=== PATIENT | male | born 1985 | race Caucasian/White ===

== ENCOUNTER 2020-11-06 19:30 | Emergency (ER) | payer MEDICAID ==
[~2020-11-06] VITALS: Ht 175.3 cm; Wt 81.6 kg
[2020-11-06 19:41] VITALS: BP 114/69
--- NOTE | 2020-11-06 19:44 | NUR ---
to lobby a/w bed ambulatory
--- NOTE | 2020-11-06 19:56 | NUR ---
PT RETURN FROM [facility] TO [facility]
[2020-11-06] MEDS ORDERED: IBUP-2218 PO (22:35)
--- NOTE | 2020-11-06 23:30 | NUR ---
Patient discharged with v/s stable. Written and verbal after care instructions given and explained BY DR. COYNE. Patient alert, oriented and verbalized understanding of instructions. Ambulatory with steady gait. All questions addressed prior to discharge. ID band removed. Patient advised to follow up with PMD. Rx of MOTRIN given. Patient educated on indication of medication including possible reaction and side effects. Opportunity to ask questions provided and answered.
== END 2020-11-06 23:30 | disposition home or self-care (01) ==
LOC: MED 19:30
DX: S99.922A Unspecified injury of left foot, initial encounter (principal); W19.XXXA Unspecified fall, initial encounter; Y93.89 Activity, other specified; Y92.89 Other specified places as the place of occurrence of the external cause; Y99.8 Other external cause status
CPT/HCPCS: 73630; 99283

== ENCOUNTER 2020-12-16 20:17 | Emergency (ER) | payer MEDICAID ==
[~2020-12-16] VITALS: Ht 172.7 cm; Wt 81.6 kg
[~2020-12-16 20:17] MED LIST: IBUP-2218 PO
[2020-12-16 20:45] VITALS: BP 109/62
--- NOTE | 2020-12-16 22:00 | NUR ---
PT CALLED FROM IN LOBBY WELL OUTSIDE, NO RESPONSE FROM PT
--- NOTE | 2020-12-16 22:05 | NUR ---
PT CALLED FROM INSIDE LOBBY, WELL OUTSIDE IN PARKING LOT. NO RESPONSE FROM PT.
[2020-12-16] MEDS ORDERED: IBUPROFEN 400 MG TAB PO ONE (22:15)
[2020-12-16] MEDS ORDERED: ACETAMINOPHEN EXTRA STRENGTH 500 MG TAB PO ONE (22:15)
[2020-12-16 23:52] VITALS: BP 109/62
--- NOTE | 2020-12-16 23:52 | NUR ---
Patient discharged with v/s stable. Written and verbal after care instructions given and explained. Patient verbalized understanding. Ambulatory with steady gait. All questions addressed prior to discharge. Advised to follow up with PMD.
== END 2020-12-17 03:07 | disposition home or self-care (01) ==
LOC: MED 20:17
DX: R51.9 Headache, unspecified (principal); Z20.822 Contact with and (suspected) exposure to COVID-19; R50.9 Fever, unspecified; R11.0 Nausea
CPT/HCPCS: 99283; U0003

== ENCOUNTER 2021-03-11 19:27 | Emergency (ER) | payer MEDICAID ==
[~2021-03-11] VITALS: Ht 172.7 cm; Wt 81.6 kg
[2021-03-11 19:34] VITALS: BP 137/76
[2021-03-11] MEDS ORDERED: ONDA4TAB PO (21:05)
[2021-03-11] MEDS ORDERED: IBUP-1842 PO (21:06)
[2021-03-11] MEDS ORDERED: ACET-10509 PO (21:06)
--- NOTE | 2021-03-11 21:30 | NUR ---
NOVEL SWAB AND INFLUENZE A & B SWAB COLLECTED. DELIVERED TO LAB. PT TOLERATED WELL.
--- NOTE | 2021-03-11 21:40 | NUR ---
Patient discharged with v/s stable. Written and verbal after care instructions given and explained. Patient alert, oriented and verbalized understanding of instructions. Ambulatory with steady gait. All questions addressed prior to discharge. ID band removed. Patient advised to follow up with PMD. Rx of IBUPROFEN, ACETAMINOPHEN, ZOFRAN given. Patient educated on indication of medication including possible reaction and side effects. Opportunity to ask questions provided and answered.
[2021-03-11 21:51] VITALS: BP 137/76
== END 2021-03-11 21:40 | disposition home or self-care (01) ==
LOC: MED 19:27
DX: R11.2 Nausea with vomiting, unspecified (principal); Z20.822 Contact with and (suspected) exposure to COVID-19; Z79.899 Other long term (current) drug therapy; Z79.1 Long term (current) use of non-steroidal anti-inflammatories (NSAID)
CPT/HCPCS: 87804; 99283; U0003

== ENCOUNTER 2021-05-02 06:00 | Emergency (ER) | payer BC, MEDICAID ==
[~2021-05-02] VITALS: Ht 180.3 cm; Wt 86.2 kg
[~2021-05-02 06:00] MED LIST changes: +ACET-10509 PO; +IBUP-1842 PO; +ONDA4TAB PO
[2021-05-02 06:05] VITALS: BP 101/71
[2021-05-02] MEDS ORDERED: MOT200 PO (06:40)
[2021-05-02] MEDS ORDERED: Tessalon Perles PO (06:44)
[2021-05-02 06:50] VITALS: BP 101/71
== END 2021-05-02 06:50 | disposition home or self-care (01) ==
LOC: MED 06:00
DX: B34.9 Viral infection, unspecified (principal)
CPT/HCPCS: 99282

== ENCOUNTER 2023-11-24 11:32 | Emergency (ER) | payer BC, MEDICAID ==
[~2023-11-24] VITALS: Ht 172.7 cm; Wt 85.0 kg
[~2023-11-24 11:32] MED LIST changes: +MOT200 PO; +Tessalon Perles PO
[2023-11-24 11:51] VITALS: BP 120/84; PULSE 75; RESP 18; TEMP 97.5; O2SAT 95
[2023-11-24] MEDS ORDERED: OFLO5SOL27 OT (12:37)
== END 2023-11-24 12:44 | disposition home or self-care (01) ==
LOC: MED 11:32
DX: H60.93 Unspecified otitis externa, bilateral (principal); Z79.1 Long term (current) use of non-steroidal anti-inflammatories (NSAID); Z79.899 Other long term (current) drug therapy
CPT/HCPCS: 99283

== ENCOUNTER 2024-02-24 17:23 | Emergency (ER) | payer BC, MEDICAID ==
[~2024-02-24] VITALS: Ht 170.2 cm; Wt 81.6 kg
[~2024-02-24 17:23] MED LIST changes: -ACET-10509 PO; +ACET500T99 PO; +OFLO5SOL27 OT
[2024-02-24 17:34] VITALS: PULSE 91; RESP 18; TEMP 98.8; O2SAT 96
[2024-02-24] MEDS: KETOROLAC 30 MG/ML VIAL IM ONE (20:37)
[2024-02-24] MEDS: LIDOCAINE/PRILOCAINE 2.5% 5 GM TUBE TP ONE (20:37)
[2024-02-24 21:00] VITALS: O2SAT 96
[2024-02-24] MEDS ORDERED: IBUP-2213 PO (21:57)
[2024-02-24] MEDS ORDERED: BACI-418 TP (21:57)
[2024-02-24] MEDS ORDERED: CEPH-588 PO (21:57)
== END 2024-02-24 22:23 | disposition home or self-care (01) ==
LOC: MED 17:23
DX: S93.401A Sprain of unspecified ligament of right ankle, initial encounter (principal); S01.511A Laceration without foreign body of lip, initial encounter; Z79.899 Other long term (current) drug therapy; W11.XXXA Fall on and from ladder, initial encounter; Y93.89 Activity, other specified; Y92.89 Other specified places as the place of occurrence of the external cause; Y99.8 Other external cause status
CPT/HCPCS: 12011; 73610; 96372; 99283; J1885